=== PATIENT | female | born 1980 | race American Indian/Alaskan Native ===

== ENCOUNTER 2020-10-20 13:51 | Emergency (ER) | payer MEDICAID ==
--- NOTE | 2020-10-20 14:05 | Emergency Department Report ---
Blank Doc - Documentation Documentation: 40-year-old female that was sent by [facility] [employer] for hypertension. Patient stated has history of hypertension but has not been taking medication since 2010. Patient does not remember her medication. Otherwise patient denies any symptoms or complaints. 1- This initial assessment/diagnostic orders/clinical plan/ treatment(s) is/are subject to change based on pt's health status, clinical progression and re- assessment by fellow clinical providers in the ED. Further treatment and workup at subsequent clinical provers discretion. Patient/guardians urged not to elope from ED as their condition may be serious if not clinically assessed and managed. 2-labs rule out hypertensive emergency
[2020-10-20] MEDS ORDERED: amLODIPine 5 MG TAB PO ONE (14:16)
--- NOTE | 2020-10-20 14:18 | Emergency Department Report ---
ED General Adult HPI - General Chief complaint: High BP Stated complaint: HIGH BLOOD PRESSURE Time Seen by Provider: 10/20/20 14:00 Source: patient Mode of arrival: Ambulatory Limitations: Physical Limitation, Other - History of Present Illness Initial comments: 40-year-old female with a past medical history of hypertension and arthritis presents to the ER today with complaints of elevated blood pressure. Patient states that she went in for routine [employer] visit today when he checked her blood pressure was elevated and therefore told her that she could not be seen due to her blood pressure. Patient states that she was on blood pressure medication but she stopped taking it about 3 years ago. She states that she stopped taking it because she does not like being on blood pressure medication. She does not have a primary care doctor. She denies any headache, dizziness, vision changes, slurred speech, chest pain, shortness of breath or any symptoms at this time. MD Complaint: Elevated Blood pressure -: Gradual (Chronic) - Related Data Previous Rx's Medication Instructions Recorded Last Taken Type Amlodipine Besylate [Norvasc] 5 mg PO DAILY #30 tablet 10/20/20 Unknown Rx hydroCHLOROthiazide [Hctz] 12.5 mg PO QDAY #30 capsule 10/20/20 Unknown Rx Allergies Allergy/AdvReac Type Severity Reaction Status Date / Time No Known Allergies Allergy Unverified 10/20/20 13:55 ED Review of Systems ROS: Stated complaint: HIGH BLOOD PRESSURE Other details as noted in HPI Comment: All other systems reviewed and negative Constitutional: denies: chills, fever Eyes: denies: eye pain, eye discharge, vision change ENT: denies: ear pain, throat pain Respiratory: denies: cough, shortness of breath, wheezing Cardiovascular: denies: chest pain, palpitations Gastrointestinal: denies: abdominal pain, nausea, diarrhea Genitourinary: denies: urgency, dysuria, discharge Neurological: denies: headache, weakness, paresthesias, confusion, abnormal gait , vertigo Psychiatric: denies: anxiety, depression ED Past Medical Hx - Past Medical History Hx Hypertension: Yes Hx Arthritis: Yes - Surgical History Additional Surgical History: HYSTO - Social History Smoking Status: Never Smoker Substance Use Type: None - Medications Home Medications: Home Medications Medication Instructions Recorded Confirmed Last Taken Type Amlodipine Besylate [Norvasc] 5 mg PO DAILY #30 tablet 10/20/20 Unknown Rx hydroCHLOROthiazide [Hctz] 12.5 mg PO QDAY #30 capsule 10/20/20 Unknown Rx ED Physical Exam - General Limitations: Physical Limitation, Other General appearance: alert, in no apparent distress - Head Head exam: Present: atraumatic, normocephalic, normal inspection - Eye Eye exam: Present: normal appearance, PERRL, EOMI Pupils: Present: normal accommodation - Respiratory Respiratory exam: Present: normal lung sounds bilaterally. Absent: respiratory distress - Cardiovascular Cardiovascular Exam: Present: regular rate, normal rhythm, normal heart sounds - Extremities Exam Extremities exam: Present: normal inspection, full ROM. Absent: pedal edema, calf tenderness - Neurological Exam Neurological exam: Present: alert, oriented X3, CN II-XII intact, normal gait - Psychiatric Psychiatric exam: Present: normal affect, normal mood - Skin Skin exam: Present: intact ED Course Vital Signs 10/20/20 10/20/20 10/20/20 13:57 15:17 15:50 Temperature 98.1 F Pulse Rate 96 H 98 H 85 Respiratory 16 Rate Blood Pressure 198/118 198/118 Blood Pressure 167/112 [Left] O2 Sat by Pulse 100 Oximetry ED Medical Decision Making - Lab Data Result diagrams: 10/20/20 14:08 10/20/20 14:08 - Medical Decision Making 40-year-old female with a past medical history of hypertension and arthritis presents to the ER today with complaints of elevated blood pressure. Patient states that she went in for routine [employer] visit today when he checked her blood pressure was elevated and therefore told her that she could not be seen due to her blood pressure. Patient states that she was on blood pressure medication but she stopped taking it about 3 years ago. She states that she stopped taking it because she does not like being on blood pressure medication. She does not have a primary care doctor. She denies any headache, dizziness, vision changes, slurred speech, chest pain, shortness of breath or any symptoms at this time. 1559: Labs reviewed and unremarkable. Pt BP improving after giving BP medication in ER. Pt asymptomatic. She is resting comfortably and not in any distress. She is well appearing, appears hydrated and neurologically intact. Discussed lab results with patient. Discussed with her the importance of being compliant with her BP medications and follow up with PCP. Pt expressed understanding of instructions and agreed with plan. Pt stable at time of d/c. Critical care attestation.: If time is entered above; I have spent that time in minutes in the direct care of this critically ill patient, excluding procedure time. ED Disposition Clinical Impression: Uncontrolled hypertension, Non compliance w medication regimen Disposition: TO HOME OR SELFCARE Is pt being admited?: No Does the pt Need Aspirin: No Condition: Stable Instructions: Hypertension, Adult, [id number], Hypertension (ED) Additional Instructions: Follow up with the PCP listed on your discharge instructions. Take the norvasc and the hctz as prescribed and take it daily. Return to ED if anything changes or worsens. Prescriptions: hydroCHLOROthiazide [Hctz] 12.5 mg PO QDAY #30 capsule Amlodipine Besylate [Norvasc] 5 mg PO DAILY #30 tablet Referrals: FRANCISCA VARGHESE MD [Staff Physician] - 3-5 Days Time of Disposition: 15:54
[2020-10-20 14:46] LABS: Eosinophils # (Auto) 0.1 K/mm3 (0.0-0.4); Eosinophils % (Auto) 4.1 % (0.0-4.3); Hemoglobin 11.7 gm/dl (10.1-14.3); Lymphocytes # (Auto) 1.4 K/mm3 (1.2-5.4); Lymphocytes % (Auto) 41.7 % (13.4-35.0); Mean Corpuscular HGB Conc 33 % (30-34); Mean Corpuscular Volume 76 fl (79-97); Monocytes # (Auto) 0.3 K/mm3 (0.0-0.8); Monocytes % (Auto) 10.4 % (0.0-7.3); Platelet Count 235 K/mm3 (140-440); Red Blood Count 4.61 M/mm3 (3.65-5.03); Red Cell Distribution Width 14.3 % (13.2-15.2)
[2020-10-20 15:22] LABS: Blood Urea Nitrogen 9 mg/dL (7-17); Calcium 8.5 mg/dL (8.4-10.2); Hemolysis Index 31
[2020-10-20 15:45] LABS: BUN/Creatinine Ratio 18
[2020-10-20 15:51] VITALS: BP 167/112
== END 2020-10-20 16:02 | disposition home or self-care (01) ==
LOC: ED 13:51
DX: I10 Essential (primary) hypertension (principal); Z91.14 Patient's other noncompliance with medication regimen; M19.91 Primary osteoarthritis, unspecified site; Z98.890 Other specified postprocedural states; Z79.899 Other long term (current) drug therapy
CPT/HCPCS: 36415; 80048; 85025